=== PATIENT | female | born 1995 | race Caucasian/White ===

== ENCOUNTER 2016-10-11 23:05 | Outpatient (CLI) | payer OTHER ==
[~2016-10-11 23:05] MED LIST: ALBUTEROL SULF8.5 GM IH; BACTRIM,SEPT1 TABLET PO; BENADRYL25 MG PO; BLOOD PRESSURE; Biaxin PO; CEFDINIR300 MG PO; CLARITIN10 MG PO; CORTIZONE-1028 GM TP; DEPO-PROVER150 MG/ML IM; FIORICET,ESG1 TABLET PO; FLEXERIL10 MG PO; FLEXERIL5 MG PO; FLONASE16 G1 BOTH NARES; MOTRIN800 MG PO; Macrobid PO; NAPROSYN500 MG PO; NORCO 5/3251 TABLET PO; Normodyne,Trandate PO; PREDNISONE20 MG PO; PREFERA-OB P1 TABLET PO; PRENATAL COMPL1 EACH PO; PRENATAL VITAM1 EAC3 PO; PROMETHAZINE HC25 M1 PO; Phenergan PO; ROBITUSSIN AC,T10 ML PO; TESSALON200 MG PO; ULTRAM50 MG PO; VENTOLIN HFA18 GM IH; ZANTAC150 MG PO; ZITHROMAX250 MG PO; ZYRTEC5 MG PO; Zantac PO; [UNRECOGNIZED DRUG - REMARK]
[2016-10-11 23:32] VITALS: BP 130/85
[2016-10-11 23:46] VITALS: BP 126/80
[2016-10-11] MEDS ORDERED: ASPIR 8181 M1 PO (23:52)
[2016-10-11] MEDS ORDERED: TYLENOL EXTRA500 MG PO (23:54)
[2016-10-12 01:21] LABS: ADD MIUA? YES; BILIRUBIN NEGATIVE; BLOOD NEGATIVE; COLOR YELLOW ((YELLOW)); GLUCOSE (STRIP) NEGATIVE; KETONES NEGATIVE; LEUKOCYTES NEGATIVE; NITRITE NEGATIVE; PH, URINE 6.5 (5-8); PROTEIN (STRIP) NEGATIVE; SPECIFIC GRAVITY 1.013 (1.000-1.030); UROBILINOGEN 0.2 MG/DL (0.2-1.0)
[2016-10-12 01:32] LABS: EOSINOPHIL (%) 2.2 % (0-5); EOSINOPHIL COUNT 0.3 K/uL (0-0.3); IMMATURE GRANULOCYTE (%) 0.4 % (0.0-0.7); IMMATURE GRANULOCYTE COUNT 0.5 K/uL; LYMPHOCYTE COUNT 2.7 K/uL (1.0-2.8); MCH 30.7 PG (29.0-34.0); MCV 87.8 FL (83-99); MEAN PLAT.VOLUME 10.7 uM^3 (9.5-12.4); MONOCYTE (%) 6.5 % (3-12); MONOCYTE COUNT 0.9 K/uL (0-0.8); NEUTROPHIL (%) 71.7 % (45-76); NEUTROPHIL COUNT 10.1 K/uL (1.8-6.4); PLATELET COUNT 200 K/uL (156-360); RBC DIS.WIDTH-CV 13.8 % (11.8-14.6); RBC DIS.WIDTH-SD 41.8 % (39-53); WHITE BLOOD COUNT 14.1 K/uL (4.1-10.2)
[2016-10-12 01:42] LABS: CHLORIDE 109 mEq/L (99-109); POTASSIUM 3.6 mEq/L (3.7-5.4); SODIUM 138 mEq/L (136-147)
[2016-10-12 01:44] LABS: GLUCOSE 115 mg/dL (70-99)
[2016-10-12 01:45] VITALS: BP 128/72
[2016-10-12 01:45] LABS: RED BLOOD CELLS NONE SEEN /HPF (0-5); WHITE BLOOD CELLS NONE SEEN /HPF (0-5)
[2016-10-12 01:45] LABS: ANION GAP 10 MEQ/L (2-14)
[2016-10-12 01:46] LABS: BACTERIA RARE; CASTS NONE SEEN /LPF; CRYSTALS NONE SEEN; EPITHELIAL CELLS RARE; MUCUS NONE SEEN; UCUL ADDED? NO
[2016-10-12 01:46] LABS: TOTAL BILIRUBIN 0.2 mg/dL (0.0-1.0)
[2016-10-12 01:47] LABS: ALKALINE PHOSPHATASE 75 IU/L (3-129)
[2016-10-12 01:48] LABS: GFR ESTIMATE (CALCULATED) > 59 mL/min/
[2016-10-12 01:49] LABS: UREA NITROGEN (BUN) 7 mg/dL (9-23)
[2016-10-12 01:51] LABS: URIC ACID 3.4 mg/dL (3.1-9.2)
[2016-10-12 02:53] LABS: LACTATE DEHYDROGENASE 254 IU/L (20-246)
== END 2016-10-12 02:40 | disposition home or self-care (01) ==
LOC: LDRP-OP 23:05 → 2WEST 23:06 → LDRP-OP 03-24 17:48
PROVIDERS: Advanced Practice Midwife
DX: R51 Headache (principal); O99.89 Other specified diseases and conditions complicating pregnancy, childbirth and the puerperium; Z3A.21 21 weeks gestation of pregnancy; R42 Dizziness and giddiness
CPT/HCPCS: 59025; 80053; 81003; 82570; 83615; 84156; 84550; 85025; G0378

== ENCOUNTER 2016-12-23 15:05 | Outpatient (CLI) | payer OTHER ==
[~2016-12-23] VITALS: Ht 165.1 cm; Wt 95.3 kg
[~2016-12-23 15:05] MED LIST changes: +ASPIR 8181 M1 PO; +TYLENOL EXTRA500 MG PO
[2016-12-23 15:50] VITALS: BP 130/81
[2016-12-23 16:21] VITALS: BP 132/82
[2016-12-23 16:51] VITALS: BP 122/80
[2016-12-23 17:16] LABS: EOSINOPHIL (%) 1.2 % (0-5); EOSINOPHIL COUNT 0.2 K/uL (0-0.3); HEMATOCRIT 34.5 % (36.0-46.0); IMMATURE GRANULOCYTE (%) 0.8 % (0.0-0.7); IMMATURE GRANULOCYTE COUNT 0.1 K/uL; INSTRUMENT ABS NEUTROPHIL CT 11.1 K/uL; LYMPHOCYTE COUNT 2.3 K/uL (1.0-2.8); MCH 29.2 PG (29.0-34.0); MCV 88.5 FL (83-99); MEAN PLAT.VOLUME 10.4 uM^3 (9.5-12.4); MONOCYTE COUNT 0.7 K/uL (0-0.8); NEUTROPHIL (%) 76.9 % (45-76); NEUTROPHIL COUNT 11.1 K/uL (1.8-6.4); PLATELET COUNT 208 K/uL (156-360); RBC DIS.WIDTH-CV 13.4 % (11.8-14.6); RBC DIS.WIDTH-SD 43.2 % (39-53); WHITE BLOOD COUNT 14.5 K/uL (4.1-10.2)
[2016-12-23 17:21] VITALS: BP 118/72
[2016-12-23 17:35] LABS: ANION GAP 10 MEQ/L (2-14); CHLORIDE 105 MEQ/L (99-109); POTASSIUM 3.3 MEQ/L (3.7-5.4); SAMPLE HEMOLYSIS CHECK 0; SAMPLE ICTERIC CHECK 0; SAMPLE LIPEMIA CHECK 1; SODIUM 135 MEQ/L (136-147); TOTAL BILIRUBIN 0.3 MG/DL (0.0-1.0)
[2016-12-23 17:41] LABS: ALKALINE PHOSPHATASE 103 IU/L (3-129); GFR ESTIMATE (CALCULATED) > 59 mL/min/; GLUCOSE 93 mg/dL (70-99); LACTATE DEHYDROGENASE 147 IU/L (20-246); UREA NITROGEN (BUN) 5 mg/dL (9-23); URIC ACID 3.9 mg/dL (3.1-9.2)
[2016-12-23] MEDS ORDERED: ZANTAC150 MG PO (19:14)
== END 2016-12-23 19:27 | disposition home or self-care (01) ==
LOC: LDRP-OP 15:05 → 2WEST 15:10 → LDRP-OP 03-24 02:52
PROVIDERS: Advanced Practice Midwife
DX: O26.899 Other specified pregnancy related conditions, unspecified trimester (principal); R51 Headache; R03.0 Elevated blood-pressure reading, without diagnosis of hypertension; Z3A.00 Weeks of gestation of pregnancy not specified
CPT/HCPCS: 59025; 80053; 82570; 83615; 84156; 84550; 85025; G0378

== ENCOUNTER 2017-01-06 20:38 | Outpatient (CLI) | payer OTHER ==
[2017-01-06 21:14] VITALS: BP 121/73
[2017-01-06 23:03] LABS: CANDIDA DNA PROBE POSITIVE; GARDNERELLA DNA PROBE NEGATIVE; INTERNAL CONTROL VALID? YES
== END 2017-01-06 23:30 | disposition home or self-care (01) ==
LOC: LDRP-OP 20:38 → 2WEST 20:41 → LDRP-OP 03-24 05:34
PROVIDERS: Obstetrics & Gynecology
DX: O26.893 Other specified pregnancy related conditions, third trimester (principal); Z3A.33 33 weeks gestation of pregnancy; M54.5 Low back pain; O35.8XX0 Maternal care for other (suspected) fetal abnormality and damage, not applicable or unspecified
CPT/HCPCS: 59025; 80306 90; 81003; 87086; 87480; 87510; 87660; G0378

== ENCOUNTER 2017-01-19 20:00 | Outpatient (CLI) | payer OTHER ==
[2017-01-19 20:19] VITALS: BP 131/85
== END 2017-01-19 21:55 | disposition home or self-care (01) ==
LOC: LDRP-OP 20:00 → 2WEST 20:01 → LDRP-OP 03-24 02:27
DX: O36.8130 Decreased fetal movements, third trimester, not applicable or unspecified (principal); O76 Abnormality in fetal heart rate and rhythm complicating labor and delivery; Z3A.35 35 weeks gestation of pregnancy
CPT/HCPCS: 59025; G0378

== ENCOUNTER 2017-01-31 15:45 | Outpatient (CLI) | payer OTHER ==
[2017-01-31] VITALS (7 sets, daily range): BP systolic 125–136; BP diastolic 81–94
[~2017-01-31] VITALS: Ht 165.1 cm; Wt 93.0 kg
[2017-01-31 17:12] LABS: ANION GAP 10 MEQ/L (2-14); CHLORIDE 108 MEQ/L (99-109); POTASSIUM 3.8 MEQ/L (3.7-5.4); SAMPLE HEMOLYSIS CHECK 0; SAMPLE ICTERIC CHECK 0; SAMPLE LIPEMIA CHECK 0; SODIUM 138 MEQ/L (136-147); TOTAL BILIRUBIN 0.4 MG/DL (0.0-1.0)
[2017-01-31 17:17] LABS: ALKALINE PHOSPHATASE 127 IU/L (3-129); GFR ESTIMATE (CALCULATED) > 59 mL/min/; GLUCOSE 80 mg/dL (70-99); LACTATE DEHYDROGENASE 142 IU/L (20-246); UREA NITROGEN (BUN) 6 mg/dL (9-23); URIC ACID 4.9 mg/dL (3.1-9.2)
[2017-01-31 18:20] LABS: EOSINOPHIL (%) 0.7 % (0-5); EOSINOPHIL COUNT 0.1 K/uL (0-0.3); HEMATOCRIT 33.2 % (36.0-46.0); IMMATURE GRANULOCYTE (%) 0.8 % (0.0-0.7); IMMATURE GRANULOCYTE COUNT 0.1 K/uL; INSTRUMENT ABS NEUTROPHIL CT 8.5 K/uL; LYMPHOCYTE COUNT 1.9 K/uL (1.0-2.8); MCH 27.6 PG (29.0-34.0); MCHC 31.6 G/DL (30.0-36.0); MCV 87.1 FL (83-99); MEAN PLAT.VOLUME 11.3 uM^3 (9.5-12.4); MONOCYTE (%) 6.6 % (3-12); MONOCYTE COUNT 0.7 K/uL (0-0.8); NEUTROPHIL (%) 74.9 % (45-76); NEUTROPHIL COUNT 8.5 K/uL (1.8-6.4); PLATELET COUNT 174 K/uL (156-360); RBC DIS.WIDTH-CV 14.3 % (11.8-14.6); RED BLOOD COUNT 3.81 M/uL (3.80-5.20); WHITE BLOOD COUNT 11.3 K/uL (4.1-10.2)
[2017-01-31 18:29] LABS: UR CREATININE CONCENTRATION 36.5 MG/DL
== END 2017-01-31 20:10 | disposition home or self-care (01) ==
LOC: LDRP-OP 15:45 → 2WEST 15:48 → LDRP-OP 03-24 22:08
PROVIDERS: Advanced Practice Midwife
DX: O26.893 Other specified pregnancy related conditions, third trimester (principal); H53.8 Other visual disturbances; R51 Headache; Z3A.37 37 weeks gestation of pregnancy
CPT/HCPCS: 59025; 80053; 82570; 83615; 84156; 84550; 85025; G0378

== ENCOUNTER 2017-02-01 21:49 | Outpatient (CLI) | payer OTHER ==
[2017-02-01 22:03] VITALS: BP 133/89
[2017-02-01 22:32] VITALS: BP 127/85
[2017-02-01 22:50] LABS: ADD MIUA? YES; BILIRUBIN NEGATIVE; BLOOD NEGATIVE; GLUCOSE (STRIP) NEGATIVE; KETONES NEGATIVE; LEUKOCYTES SMALL; NITRITE NEGATIVE; PROTEIN (STRIP) NEGATIVE; SPECIFIC GRAVITY 1.004 (1.000-1.030); UROBILINOGEN 0.2 MG/DL (0.2-1.0)
[2017-02-01 22:53] LABS: EOSINOPHIL (%) 1.2 % (0-5); EOSINOPHIL COUNT 0.1 K/uL (0-0.3); HEMATOCRIT 31.8 % (36.0-46.0); IMMATURE GRANULOCYTE (%) 0.7 % (0.0-0.7); IMMATURE GRANULOCYTE COUNT 0.1 K/uL; INSTRUMENT ABS NEUTROPHIL CT 7.9 K/uL; LYMPHOCYTE COUNT 2.3 K/uL (1.0-2.8); MCH 27.7 PG (29.0-34.0); MCHC 31.4 G/DL (30.0-36.0); MCV 88.1 FL (83-99); MEAN PLAT.VOLUME 11.1 uM^3 (9.5-12.4); MONOCYTE COUNT 0.8 K/uL (0-0.8); NEUTROPHIL (%) 70.2 % (45-76); NEUTROPHIL COUNT 7.9 K/uL (1.8-6.4); PLATELET COUNT 175 K/uL (156-360); RBC DIS.WIDTH-CV 14.5 % (11.8-14.6); RBC DIS.WIDTH-SD 45.6 % (39-53); RED BLOOD COUNT 3.61 M/uL (3.80-5.20); WHITE BLOOD COUNT 11.2 K/uL (4.1-10.2)
[2017-02-01 22:56] LABS: COLOR PALE YELLOW ((YELLOW))
[2017-02-01 22:58] LABS: UR CREATININE CONCENTRATION 38.5 MG/DL
[2017-02-01 23:02] LABS: BACTERIA 1+ /HPF; EPITHELIAL CELLS 4+ /HPF; MUCUS TRACE /LPF; UCUL ADDED? NO
[2017-02-01 23:07] VITALS: BP 129/88
[2017-02-01 23:14] LABS: ALKALINE PHOSPHATASE 130 IU/L (3-129); ANION GAP 8 MEQ/L (2-14); CHLORIDE 107 MEQ/L (99-109); GFR ESTIMATE (CALCULATED) > 59 mL/min/; GLUCOSE 85 mg/dL (70-99); LACTATE DEHYDROGENASE 150 IU/L (20-246); POTASSIUM 3.5 MEQ/L (3.7-5.4); SAMPLE HEMOLYSIS CHECK 0; SAMPLE ICTERIC CHECK 0; SAMPLE LIPEMIA CHECK 0; SODIUM 136 MEQ/L (136-147); UREA NITROGEN (BUN) 5 mg/dL (9-23)
[2017-02-01 23:16] LABS: TOTAL BILIRUBIN 0.3 MG/DL (0.0-1.0)
[2017-02-02 00:04] VITALS: BP 132/84
[2017-02-02] MEDS ORDERED: FIORICET,ESG1 TABLET PO (00:25)
== END 2017-02-02 00:50 | disposition home or self-care (01) ==
LOC: LDRP-OP 21:49 → 2WEST 21:50 → LDRP-OP 03-24 20:44
PROVIDERS: Advanced Practice Midwife
DX: O26.899 Other specified pregnancy related conditions, unspecified trimester (principal); R55 Syncope and collapse; R51 Headache; R03.0 Elevated blood-pressure reading, without diagnosis of hypertension; Z3A.00 Weeks of gestation of pregnancy not specified
CPT/HCPCS: 80053; 81003; 82570; 83615; 84156; 84550; 85025; G0378

== ENCOUNTER 2017-02-08 11:40 | Outpatient (CLI) | payer OTHER ==
[2017-02-08 12:14] VITALS: BP 131/79
[2017-02-08 12:29] VITALS: BP 130/79
[2017-02-08 12:44] VITALS: BP 125/85
[2017-02-08 13:26] LABS: EOSINOPHIL (%) 0.6 % (0-5); EOSINOPHIL COUNT 0.1 K/uL (0-0.3); HEMATOCRIT 33.2 % (36.0-46.0); IMMATURE GRANULOCYTE (%) 0.8 % (0.0-0.7); IMMATURE GRANULOCYTE COUNT 0.1 K/uL; INSTRUMENT ABS NEUTROPHIL CT 7.4 K/uL; LYMPHOCYTE COUNT 1.6 K/uL (1.0-2.8); MCH 27.3 PG (29.0-34.0); MCHC 31.6 G/DL (30.0-36.0); MCV 86.2 FL (83-99); MEAN PLAT.VOLUME 11.3 uM^3 (9.5-12.4); MONOCYTE (%) 7.6 % (3-12); MONOCYTE COUNT 0.8 K/uL (0-0.8); NEUTROPHIL COUNT 7.4 K/uL (1.8-6.4); PLATELET COUNT 175 K/uL (156-360); RBC DIS.WIDTH-CV 14.6 % (11.8-14.6); RBC DIS.WIDTH-SD 45.1 % (39-53); RED BLOOD COUNT 3.85 M/uL (3.80-5.20); WHITE BLOOD COUNT 9.9 K/uL (4.1-10.2)
[2017-02-08 13:42] LABS: ANION GAP 9 MEQ/L (2-14); CHLORIDE 107 MEQ/L (99-109); POTASSIUM 3.7 MEQ/L (3.7-5.4); SAMPLE HEMOLYSIS CHECK 0; SAMPLE ICTERIC CHECK 0; SAMPLE LIPEMIA CHECK 0; SODIUM 138 MEQ/L (136-147); TOTAL BILIRUBIN 0.3 MG/DL (0.0-1.0)
[2017-02-08 13:48] LABS: ALKALINE PHOSPHATASE 139 IU/L (3-129); GFR ESTIMATE (CALCULATED) > 59 mL/min/; GLUCOSE 93 mg/dL (70-99); UREA NITROGEN (BUN) 6 mg/dL (9-23)
[2017-02-08 13:51] VITALS: BP 136/81
[2017-02-08 13:59] LABS: UR CREATININE CONCENTRATION 455.9 MG/DL
== END 2017-02-08 15:00 | disposition home or self-care (01) ==
LOC: LDRP-OP 11:40 → 2WEST 11:41 → LDRP-OP 03-24 00:59
PROVIDERS: Obstetrics & Gynecology Obstetrics
DX: O26.893 Other specified pregnancy related conditions, third trimester (principal); R03.0 Elevated blood-pressure reading, without diagnosis of hypertension; R51 Headache; R10.11 Right upper quadrant pain; H53.8 Other visual disturbances; Z3A.38 38 weeks gestation of pregnancy
CPT/HCPCS: 59025; 80053; 82570; 84156; 85025; G0378

== ENCOUNTER 2017-02-14 07:41 | Inpatient (IN) | payer OTHER ==
[~2017-02-14] VITALS: Ht 165.1 cm; Wt 98.9 kg
[2017-02-14] VITALS (24 sets, daily range): BP systolic 103–157; BP diastolic 58–94
[2017-02-14 10:06] LABS: EOSINOPHIL (%) 1.3 % (0-5); EOSINOPHIL COUNT 0.2 K/uL (0-0.3); HEMATOCRIT 32.8 % (36.0-46.0); IMMATURE GRANULOCYTE (%) 1.1 % (0.0-0.7); IMMATURE GRANULOCYTE COUNT 0.1 K/uL; INSTRUMENT ABS NEUTROPHIL CT 8.2 K/uL; MCH 27.7 PG (29.0-34.0); MCV 86.5 FL (83-99); MEAN PLAT.VOLUME 11.1 uM^3 (9.5-12.4); MONOCYTE (%) 6.4 % (3-12); MONOCYTE COUNT 0.7 K/uL (0-0.8); NEUTROPHIL COUNT 8.2 K/uL (1.8-6.4); PLATELET COUNT 179 K/uL (156-360); RBC DIS.WIDTH-CV 14.8 % (11.8-14.6); RBC DIS.WIDTH-SD 46.1 % (39-53); RED BLOOD COUNT 3.79 M/uL (3.80-5.20); WHITE BLOOD COUNT 11.2 K/uL (4.1-10.2)
[2017-02-14 10:16] LABS: CHLORIDE 109 mEq/L (99-109); POTASSIUM 3.4 mEq/L (3.7-5.4); SODIUM 137 mEq/L (136-147)
[2017-02-14 10:18] LABS: GLUCOSE 79 mg/dL (70-99)
[2017-02-14 10:19] LABS: ANION GAP 8 MEQ/L (2-14)
[2017-02-14 10:20] LABS: TOTAL BILIRUBIN 0.3 mg/dL (0.0-1.0)
[2017-02-14 10:22] LABS: ALKALINE PHOSPHATASE 160 IU/L (3-129); GFR ESTIMATE (CALCULATED) > 59 mL/min/
[2017-02-14 10:23] LABS: UREA NITROGEN (BUN) 5 mg/dL (9-23)
[2017-02-14 11:23] LABS: UR CREATININE CONCENTRATION 38.9 MG/DL
[2017-02-14 11:24] LABS: LACTATE DEHYDROGENASE 153 IU/L (20-246); SAMPLE HEMOLYSIS CHECK 0; SAMPLE ICTERIC CHECK 0; SAMPLE LIPEMIA CHECK 0
[2017-02-15] VITALS (8 sets, daily range): BP systolic 129–138; BP diastolic 61–99
[2017-02-16 04:30] VITALS: BP 115/58
[2017-02-16 07:43] LABS: EOSINOPHIL COUNT 0.2 K/uL (0-0.3); HEMATOCRIT 30.8 % (36.0-46.0); IMMATURE GRANULOCYTE (%) 0.9 % (0.0-0.7); IMMATURE GRANULOCYTE COUNT 0.1 K/uL; INSTRUMENT ABS NEUTROPHIL CT 7.2 K/uL; LYMPHOCYTE COUNT 1.4 K/uL (1.0-2.8); MCH 27.8 PG (29.0-34.0); MCHC 31.2 G/DL (30.0-36.0); MCV 89.3 FL (83-99); MEAN PLAT.VOLUME 11.5 uM^3 (9.5-12.4); MONOCYTE (%) 6.3 % (3-12); MONOCYTE COUNT 0.6 K/uL (0-0.8); NEUTROPHIL COUNT 7.2 K/uL (1.8-6.4); PLATELET COUNT 151 K/uL (156-360); RBC DIS.WIDTH-CV 15.2 % (11.8-14.6); RBC DIS.WIDTH-SD 48.6 % (39-53); RED BLOOD COUNT 3.45 M/uL (3.80-5.20); WHITE BLOOD COUNT 9.5 K/uL (4.1-10.2)
[2017-02-16 09:40] VITALS: BP 122/76
[2017-02-16] MEDS ORDERED: IBUPROFEN800 MG PO (09:43)
[2017-02-16] MEDS ORDERED: ORTHO TRI-CY1 TABLE1 PO (09:44)
[2017-02-16] MEDS ORDERED: FERROUS GLUCON324 MG PO (09:44)
== END 2017-02-16 13:43 | disposition home or self-care (01) | DRG 775 ==
LOC: LDRP-OP 07:41 → 2WEST 07:42 → LDRP-OP 23:07 → 2WEST 02-16 13:43 → LDRP-OP 03-24 18:43
PROVIDERS: Advanced Practice Midwife
PROC: 10907ZC Drainage of Amniotic Fluid, Therapeutic from Products of Conception, Via Natural or Artificial Opening (ICD-10-PCS; principal; 2017-02-14)
PROC: 10E0XZZ Delivery of Products of Conception, External Approach (ICD-10-PCS; principal; 2017-02-14)
PROC: 3E033VJ Introduction of Other Hormone into Peripheral Vein, Percutaneous Approach (ICD-10-PCS; principal; 2017-02-14)
PROC: 3E0S3CZ (ICD-10-PCS; 2017-02-14)
PROC: 00HU33Z Insertion of Infusion Device into Spinal Canal, Percutaneous Approach (ICD-10-PCS; 2017-02-14)
DX: O13.4 Gestational [pregnancy-induced] hypertension without significant proteinuria, complicating childbirth (principal); D62 Acute posthemorrhagic anemia; E66.9 Obesity, unspecified; O99.214 Obesity complicating childbirth; Z68.31 Body mass index [BMI] 31.0-31.9, adult; O76 Abnormality in fetal heart rate and rhythm complicating labor and delivery; O99.344 Other mental disorders complicating childbirth; Z3A.39 39 weeks gestation of pregnancy; Z37.0 Single live birth; F31.9 Bipolar disorder, unspecified; F90.9 Attention-deficit hyperactivity disorder, unspecified type; F42.9 Obsessive-compulsive disorder, unspecified; O99.02 Anemia complicating childbirth
CPT/HCPCS: 80053; 82570; 83615; 84156; 84550; 85025; 85384; 86900; 86901; 86920; C1755; J2795; J3010; J7120

== ENCOUNTER 2017-05-08 05:38 | Day surgery (SDC) | payer OTHER ==
[~2017-05-08] VITALS: Ht 165.1 cm; Wt 90.7 kg
[~2017-05-08 05:38] MED LIST changes: +FERROUS GLUCON324 MG PO; +IBUPROFEN800 MG PO; +ORTHO TRI-CY1 TABLE1 PO; +TUMS500 MG PO
[2017-05-08 06:19] VITALS: BP 122/72
[2017-05-08] MEDS ORDERED: ENDOCET 5-3251 EACH PO (08:41)
[2017-05-08] MEDS ORDERED: IBUPROFEN800 MG PO (08:41)
[2017-05-08 09:42] VITALS: BP 135/80
[2017-05-08 10:41] VITALS: BP 113/66
[2017-05-08 12:40] VITALS: BP 122/82
[2017-05-08 13:19] VITALS: BP 134/92
== END 2017-05-08 13:40 | disposition home or self-care (01) ==
LOC: SDC 05:38
PROC: 0U574ZZ Destruction of Bilateral Fallopian Tubes, Percutaneous Endoscopic Approach (ICD-10-PCS; principal; 2017-05-08)
DX: Z30.2 Encounter for sterilization (principal); N83.292 Other ovarian cyst, left side; E66.9 Obesity, unspecified; Z68.32 Body mass index [BMI] 32.0-32.9, adult; Z82.69 Family history of other diseases of the musculoskeletal system and connective tissue; Z83.79 Family history of other diseases of the digestive system; Z80.1 Family history of malignant neoplasm of trachea, bronchus and lung; Z82.49 Family history of ischemic heart disease and other diseases of the circulatory system; Z80.0 Family history of malignant neoplasm of digestive organs; Z83.3 Family history of diabetes mellitus; Z82.5 Family history of asthma and other chronic lower respiratory diseases
CPT/HCPCS: J0330; J1100; J1170; J1885; J2250; J2405; J2710; J2765; J3010; Q0175; S0020

== ENCOUNTER 2018-05-23 23:10 | Emergency (ER) | payer OTHER ==
[~2018-05-23] VITALS: Ht 167.6 cm; Wt 95.2 kg
[~2018-05-23 23:10] MED LIST changes: +ENDOCET 5-3251 EACH PO
[2018-05-24 00:04] LABS: HEMATOCRIT 35.1 % (36.0-46.0); HEMOGLOBIN 10.8 G/DL (11.9-15.5); MCH 24.7 PG (29.0-34.0); MCHC 30.8 G/DL (30.0-36.0); MCV 80.1 FL (83-99); PLATELET COUNT 241 K/uL (156-360); RBC DIS.WIDTH-CV 16.8 % (11.8-14.6); RBC DIS.WIDTH-SD 48.5 % (39-53); RED BLOOD COUNT 4.38 M/uL (3.80-5.20); WHITE BLOOD COUNT 9.3 K/uL (4.1-10.2)
[2018-05-24 00:12] LABS: CHLORIDE 111 mEq/L (99-109); POTASSIUM 3.6 mEq/L (3.7-5.4); SODIUM 140 mEq/L (136-147)
[2018-05-24 00:13] LABS: GLUCOSE 97 mg/dL (70-99)
[2018-05-24 00:17] LABS: CREATININE 0.9 mg/dL (0.6-1.3); GFR ESTIMATE (CALCULATED) > 59 mL/min/
[2018-05-24 00:18] LABS: UREA NITROGEN (BUN) 11 mg/dL (9-23)
[2018-05-24] MEDS ORDERED: PREDNISONE20 MG PO (02:19)
[2018-05-24] MEDS ORDERED: BENADRYL25 MG PO (02:19)
[2018-05-24] MEDS ORDERED: PROAIR RESPICL90 MCG IH (02:19)
[2018-05-24 02:39] VITALS: BP 138/79
== END 2018-05-24 02:39 | disposition home or self-care (01) ==
LOC: EME 23:10
DX: J45.901 Unspecified asthma with (acute) exacerbation (principal); K21.9 Gastro-esophageal reflux disease without esophagitis; G43.909 Migraine, unspecified, not intractable, without status migrainosus; F41.9 Anxiety disorder, unspecified; F32.9 Major depressive disorder, single episode, unspecified; F31.9 Bipolar disorder, unspecified; F42.9 Obsessive-compulsive disorder, unspecified; F90.9 Attention-deficit hyperactivity disorder, unspecified type
CPT/HCPCS: 71046; 80048; 85027; 94640; 99281; 99284; J7512